=== PATIENT | female | born 1960 | race Caucasian/White ===

== ENCOUNTER 2017-06-23 04:19 | Inpatient (IN) | payer BC ==
[2017-06-23] VITALS (9 sets, daily range): BP systolic 136–166; BP diastolic 70–80; PULSE 69–86; TEMP 36.8–36.9; O2SAT 94–99; Ht 165.1 cm; Wt 95.4 kg
[~2017-06-23] VITALS: Ht 165.1 cm; Wt 95.4 kg
[~2017-06-23 04:19] MED LIST: LSN/10125 PO
[2017-06-23] MEDS ORDERED: SODIUM CHLORIDE 0.9% 1000ML 1,000 ML IV STA (04:38)
[2017-06-23] MEDS ORDERED: OPTIRAY 320 IV PRN (04:45)
[2017-06-23 05:03] LABS: BASO % 0.4 %; BASO ABS # 0.03 K/uL (0-0.2); COMPLETE YES; HEMATOCRIT 43.5 % (37-47); IG% 0.1 %; LYMPH % 20.6 %; MEAN CELL VOLUME 83.7 fL (80-100); MEAN CORPUSCULAR HGB CONC 34.7 g/dl (32-36); MEAN PLATELET VOLUME 9.7 fL (7.4-10.4); MONO % 8.7 %; NEUT % 67.2 %; PLATELET COUNT 239 K/uL (130-400); WHITE BLOOD COUNT 7.28 K/uL (4.8-10.8)
[2017-06-23] MEDS ORDERED: VANCOMYCIN INJ 2,400 MG in SODIUM CHLORIDE 0.9% 500ML 500 ML IV STA (06:07)
[2017-06-23] MEDS ORDERED: CEFTRIAXONE SOD INJ 1 GM ADDVIAL IV STA (06:07)
[2017-06-23] MEDS ORDERED: DEXAMETHASONE SOD INJ 10 MG/ML VIAL IV ONE (06:15)
--- NOTE | 2017-06-23 06:31 | DIAGNOSTIC IMAGING REPORT ---
CHEST 2 VIEWS ROUTINE CLINICAL HISTORY: cough COMPARISON STUDY: No previous studies for comparison. FINDINGS: The cardiac and mediastinal contours are normal. There is no evidence of focal pulmonary consolidation. There is no evidence of failure. No pleural effusions are visualized.[ IMPRESSION: No active disease in the chest. Electronically signed by: Venancio Mora M.D. 06/23/2017 6:29 AM Dictated Date/Time: 06/23/2017 6:29 AM
[2017-06-23] MEDS ORDERED: SODIUM CHLORIDE 0.9% 1000ML 1,000 ML IV SCH (06:35)
[2017-06-23] MEDS ORDERED: MoRPHine SULFATE 2 MG/ML CARP IV PRN (06:45)
[2017-06-23] MEDS ORDERED: ALBUT/IPRATROP 3MG/0.5MG NEB 3 ML VIAL INH PRN (06:45)
[2017-06-23] MEDS ORDERED: ACETAMINOPHEN 325 MG TAB PO PRN (06:45)
[2017-06-23] MEDS ORDERED: ONDANSETRON INJ 2 MG/ML 2 ML VIAL IV PRN (06:45)
[2017-06-23] MEDS ORDERED: HydrALAZINE HCL 20 MG/ML VIAL IV. PRN (07:00)
[2017-06-23 07:06] LABS: BUN/CREATININE RATIO 19.6 (10-20); CALCIUM 8.7 mg/dl (8.5-10.1); CREATININE 0.64 mg/dl (0.60-1.20); POTASSIUM 3.3 mmol/L (3.5-5.1)
[2017-06-23 07:09] LABS: ALB/GLOB RATIO 1.1 (0.9-2)
[2017-06-23] MEDS ORDERED: VANCOMYCIN CONSULT ACTIVE PRN (07:15)
--- NOTE | 2017-06-23 07:16 | EMERGENCY ROOM VISIT NOTE ---
History First contact with patient: 04:30 Chief Complaint: RESPIRATORY PROBLEMS Stated Complaint: CAN'T BREATHE,LUMP IN THROAT Nursing Triage Summary: pt states she feels like she cant breathe after she swallows. pt states she feels she has laryngitist since wednesday, and has become increasingly worse. pt states shes not being treated medically for laryngitist History of Present Illness The patient is a 56 year old female who presents to the Emergency Room with complaints of severe dysphagia with sore throat and laryngitis. Patient states that beginning week she started with laryngitis and last night she had difficulty swallowing solids and liquids. She's had a sore throat all week. Patient complains of occasional cough. Patient denies chest pain, dyspnea, neck stiffness, headache, abdominal pain, vomiting, diarrhea, tongue swelling, facial swelling. No new foods soaps or discharge. No history of similar symptoms in the past. Review of Systems See HPI for pertinent positives & negatives. A total of 10 systems reviewed and were otherwise negative. Past Medical/Surgical History Medical Problems: (1) Difficulty swallowing (2) Lump in throat Hypertension Social History Smoking Status: Never Smoker Smokeless Tobacco Use: No Alcohol Use: none Drug Use: none Marital Status: Housing Status: lives with family Current/Historical Medications Scheduled Hctz/Lisinopril (Lisinopril/Hctz 10/12.5 Mg), 1 TAB PO DAILY Physical Exam Vital Signs Date Time Temp Pulse Resp B/P (MAP) Pulse Ox O2 Delivery O2 Flow Rate FiO2 06/23/17 06:44 72 06/23/17 06:42 36.9 93 18 163/82 99 Room Air 06/23/17 04:32 99 Room Air 06/23/17 04:22 36.9 93 18 155/94 99 Room Air Physical Exam VITALS: Vitals are noted on the nurse's note and reviewed by myself. Vital signs stable. GENERAL: Pleasant female with loss of voice, in no acute distress, nondiaphoretic, well-developed well-nourished. SKIN: The skin was without rashes, erythema, edema, or bruising. There is no tenting of the skin. Capillary reflex less than 2 seconds. HEAD: Normocephalic atraumatic. EARS: External auditory canals clear, tympanic membranes pearly collado without erythema or effusion bilaterally. EYES: Pupils equal round and reactive to light and accommodation. Conjunctivae without injection, sclerae without icterus. Extraocular movements intact. NOSE: Patent, turbinates without inflammation or discharge. No sinus tenderness. MOUTH: Mucous membranes moist. Pharynx with erythema without exudate. Uvula midline. Airway patent. Tongue does not deviate. No drooling. Patient is maintaining her secretions. No tongue edema. NECK: Supple without nuchal rigidity. No lymphadenopathy. No thyromegaly. Cervical spine is nontender. No JVD. No meningeal signs HEART: Regular rate and rhythm LUNGS: Clear to auscultation bilaterally without wheezes, rales or rhonchi. No dullness to percussion. No retractions or accessory muscle use. ABDOMEN: Positive bowel sounds x 4. Normal tympanic percussion. Soft, nontender, without masses or organomegaly. Spence sign negative. No guarding or rebound tenderness. MUSCULOSKELETAL: No muscle atrophy, erythema, or edema noted. NEURO: Patient was alert and oriented to person place and time. Normal sensation to light and sharp touch. No focal neurological deficits. Medical Decision & Procedures Laboratory Results 06/23/17 04:40 Red Blood Count 5.20, Mean Corpuscular Volume 83.7, Mean Corpuscular Hemoglobin 29.0, Mean Corpuscular Hemoglobin Concent 34.7, Mean Platelet Volume 9.7, Neutrophils (%) (Auto) 67.2, Lymphocytes (%) (Auto) 20.6, Monocytes (%) (Auto) 8.7, Eosinophils (%) (Auto) 3.0, Basophils (%) (Auto) 0.4, Neutrophils # (Auto) 4.89, Lymphocytes # (Auto) 1.50, Monocytes # (Auto) 0.63, Eosinophils # (Auto) 0.22, Basophils # (Auto) 0.03 06/23/17 06:37 Test 06/23/17 04:40 06/23/17 06:19 06/23/17 06:37 White Blood Count 7.28 K/uL (4.8-10.8) Red Blood Count 5.20 M/uL (4.2-5.4) Hemoglobin 15.1 g/dL (12.0-16.0) Hematocrit 43.5 % (37-47) Mean Corpuscular Volume 83.7 fL (80-100) Mean Corpuscular Hemoglobin 29.0 pg (25-34) Mean Corpuscular Hemoglobin Concent 34.7 g/dl (32-36) Platelet Count 239 K/uL (130-400) Mean Platelet Volume 9.7 fL (7.4-10.4) Neutrophils (%) (Auto) 67.2 % Lymphocytes (%) (Auto) 20.6 % Monocytes (%) (Auto) 8.7 % Eosinophils (%) (Auto) 3.0 % Basophils (%) (Auto) 0.4 % Neutrophils # (Auto) 4.89 K/uL (1.4-6.5) Lymphocytes # (Auto) 1.50 K/uL (1.2-3.4) Monocytes # (Auto) 0.63 K/uL (0.11-0.59) Eosinophils # (Auto) 0.22 K/uL (0-0.5) Basophils # (Auto) 0.03 K/uL (0-0.2) RDW Standard Deviation 39.0 fL (36.4-46.3) RDW Coefficient of Variation 13.0 % (11.5-14.5) Immature Granulocyte % (Auto) 0.1 % Immature Granulocyte # (Auto) 0.01 K/uL (0.00-0.02) Bedside Glucose 152 mg/dl (70-90) Anion Gap 5.0 mmol/L (3-11) Est Creatinine Clear Calc Drug Dose 108.9 ml/min Estimated GFR () 114.8 Estimated GFR (Non- 99.1 BUN/Creatinine Ratio 19.6 (10-20) Calcium Level 8.7 mg/dl (8.5-10.1) Total Bilirubin 1.1 mg/dl (0.2-1) Aspartate Amino Transf (AST/SGOT) 19 U/L (15-37) Alanine Aminotransferase (ALT/SGPT) 28 U/L (12-78) Alkaline Phosphatase 108 U/L (45-117) Total Protein 7.3 gm/dl (6.4-8.2) Albumin 3.8 gm/dl (3.4-5.0) Globulin 3.5 gm/dl (2.5-4.0) Albumin/Globulin Ratio 1.1 (0.9-2) Medications Administered Medications (Trade) Dose Ordered Sig/Vale Route Start Time Stop Time Status Last Admin Dose Admin Sodium Chloride 1,000 ml @ 999 mls/hr Q1H1M STAT IV 06/23/17 04:38 06/23/17 05:38 DC 06/23/17 04:57 999 MLS/HR Ceftriaxone Sodium (Rocephin Inj) 1 gm NOW STAT IV 06/23/17 06:07 06/23/17 06:12 DC 06/23/17 06:25 1 GM Dexamethasone Sodium Phosphate (Decadron Inj) 10 mg NOW ONCE IV 06/23/17 06:15 06/23/17 06:16 DC 06/23/17 06:25 10 MG ED Course Prior records/ancillary studies reviewed. Triage Nursing notes reviewed. Additional history obtained from family The patient's history was concerning for a sore throat and dysphagia. Differential diagnosis: Etiologies such as epiglottitis, viral syndrome, tonsillitis, streptococcal pharyngitis, mononucleosis, peritonsillar abscess, retropharyngeal abscess, otitis, pneumonia, influenza, as well as others were entertained. ER treatment provided: IV fluids On reassessment the patient felt better. Diagnostics interpreted by me: The labs revealed creatinine 0.7. Negative strep test. Sent for culture. No leukocytosis Imaging studies: Chest x-ray with no acute consolidation, pneumothorax or free air per my interpretation CT NECK: Symmetric, prominent thickening of bilateral aryepiglottic folds/supraglottic region as well as thickening of the vocal cords. Findings are nonspecific and may be infectious or inflammatory in etiology. If is patent but moderately narrowed at supraglottic region. No evidence of focal mass, abscess, or foreign body. Epiglottis is within normal limits. Right level II lymph node is mildly enlarged, measuring up to 1.1 cm in short axis. Otherwise, no significantly enlarged lymph nodes. 4 mm lung nodule right apex. Degenerative changes of cervical spine. Radiologist: Dane Arnold MD Consultation: A consultation was placed with ENT, Dr. Summers who recommends antibiotics and he will come in and evaluate the patient and recommends ICU admission. I spoke to Dr. Morrow, hospitalist, and will evaluate the patient for admission. This appears to be consistent with supraglottitis. Patient was started on antibiotics. Patient was given steroids. Blood cultures are pending.. She will be evaluated by medicine and by ENT.. Patient was neurovascularly and neurologically intact. Stable vital signs. By the evaluation outlined above emergent etiologies such as peritonsillar abscess, retropharyngeal abscess, otitis, pneumonia, meningitis, urinary tract infection, as well as others were deemed relatively unlikely. The pt informed about the findings as listed above. All questions were answered and pleased with the treatment. Case reviewed with my attending. Medical Decision As above Medication Reconcilliation Current Medication List: was personally reviewed by me Blood Pressure Screening Patient's blood pressure: Normal blood pressure Impression Primary Impression: Supraglottitis Departure Information Dispostion Being Evaluated By Hospitalist Condition FAIR Referrals Mike Montejo M.D. (PCP) Patient Instructions My [facility] Problem Qualifiers Primary Impression: Supraglottitis Airway obstruction: without obstruction Qualified Codes: J04.30 - Supraglottitis, unspecified, without obstruction
--- NOTE | 2017-06-23 07:25 | HISTORY & PHYSICAL EXAMINATION ---
DATE OF ADMISSION: 06/23/2017 CHIEF COMPLAINT: Lump in her throat and difficulty swallowing. HISTORY OF PRESENT ILLNESS: This is a 56-year-old female with past medical history significant for hypertension, hyperlipidemia, migraines, adjustment reaction presents with lump in the throat and feeling difficulty swallowing. The patient says since last 3-4 days she had laryngitis, but she did not take any medications but last night she felt like swollen lump and swelling in her throat and has difficult and painful swallowing. She took a Benadryl but the symptoms did not improve and she came to the ER. She denies any shortness of breath but when she had difficulty swallowing, she felt short of breath. Currently resting comfortably, hemodynamically stable. Denies any headaches, no blurred vision. She has had some runny nose for few days, no ear pain, no fever or chills. No chest pain, no nausea, no vomiting, no abdominal pain. Normal bowel and bladder movements. Appetite is okay. No blood in stools. No blood in the urine. No skin rash. ALLERGIES: PENICILLINS. PAST MEDICAL HISTORY: As mentioned above. PAST SURGICAL HISTORY: induced by D&E. MEDICATIONS: The patient is on lisinopril/hydrochlorothiazide 10/12.5 mg p.o. daily. FAMILY HISTORY: Significant for mother had breast cancer and hypertension and high cholesterol. Paternal grandfather has lung cancer. Paternal grandmother has CHF. SOCIAL HISTORY: . No smoking history. No alcohol, no drug use. REVIEW OF SYMPTOMS: As per HPI. Rest of review of symptoms negative. PHYSICAL EXAMINATION: GENERAL: The patient is of moderate build, not in distress. VITAL SIGNS: Temperature 36.9, pulse 93, respiratory rate 18, blood pressure 155/94, oxygen 99% room air. HEENT: No pallor, no icterus. Pupils equal, round, and reactive to light. Oral mucosa moist. On palpation, on visual inspection, no erythema, hypolarynx or enlarged tonsils seen. NECK: No JVD, no carotid bruits. CARDIOVASCULAR: S1, S2 heard, regular rate and rhythm, no murmur, no gallop. RESPIRATORY SYSTEM: Normal AP diameter. No accessory muscle use. No wheezing, no crackles. ABDOMEN: Soft, bowel sounds present. Nontender. No distention. CENTRAL NERVOUS SYSTEM: Cranial nerves II-XII grossly intact. Nonfocal. EXTREMITIES: No edema, no erythema. LABORATORY DATA: WBC 7.2, hemoglobin 15.1, hematocrit 43.5, platelets 239. Chemistry pending. Chest x-ray: No acute disease in the chest. Soft tissue CT of the neck unofficial reading supraglottitis. ASSESSMENT AND PLAN: This is a 56-year-old female who presents with lump in the throat and difficulty swallowing. 1. Feeling of lump in throat and difficulty swallowing and laryngitis for 3 days, possible supraglottitis. Official reading of the CT scan of the soft tissues pending. The patient is taking IV Decadron, placed on IV Rocephin and vancomycin. ER Discussed with ENT, Dr. Summers who is going to come and evaluate the patient. We will admit to ICU and closely monitor. 2. History of hypertension. The patient is taking lisinopril/hydrochlorothiazide and the patient says she is on this medication for the last 5 years which we will hold for now and place her on IV hydralazine p.r.n. 3. Deep vein thrombosis prophylaxis, SCDs and TEDs. DISPOSITION: Admit to ICU. Expect to discharge home and follow with her family doctor. Level 1 full code. MTDD
--- NOTE | 2017-06-23 07:28 | DIAGNOSTIC IMAGING REPORT ---
SOFT TISSUE NECK WITH HISTORY: 56 years-old Female severe dysphagia recent laryngitis with sore throat and difficulty swallowing secretions. COMPARISON: Chest radiograph of same day TECHNIQUE: Multiple axial CT images of the soft tissues of the neck were obtained utilizing 93 mL Optiray 320 IV contrast. A dose lowering technique was used consistent with the principals of ARI. FINDINGS: Nasopharynx, oropharynx and hypopharynx are patent. There is mild symmetric enlargement of the adenoid tonsils. Sulligent tonsils and lingual tonsils are within normal limits. There is moderate symmetric thickening of the bilateral aryepiglottic folds and true vocal cords. The epiglottis, vallecula and Piriform sinuses are unremarkable. No glottic mass. Preglottic fat is maintained. Image trachea is patent. Parapharyngeal fat planes are maintained. No peritonsillar or retropharyngeal abscess. Mildly prominent level 2 lymph nodes are likely reactive. Imaged intracranial structures are unremarkable. Thyroid is homogeneous. Image carotid vasculature is unremarkable. Mastoid air cells, middle ear cavities are clear. Paranasal sinuses are also generally clear. Moderate multilevel degenerative changes of the cervical spine. 2 mm pleural-based pulmonary nodule of the left upper lobe seen on image 377 series 3. There is a slightly irregular 6 x 5 mm pulmonary nodule of the right upper lobe on image 352 series 3. IMPRESSION: 1. Moderate symmetric thickening of the bilateral aryepiglottic folds and true vocal cords without focal mass suggests inflammatory or infectious etiology. This could be correlated with direct visualization. 2. Mild enlargement of the adenoid tonsils. No peritonsillar or retropharyngeal abscess. 3. Mild prominence of level II lymph nodes bilaterally, likely reactive. 4. 6 x 5 mm pulmonary nodule of the right upper lobe. Follow-up nonemergent chest CT recommended to further evaluate. The above report was generated using voice recognition software. It may contain grammatical, syntax or spelling errors. Electronically signed by: Bryant Benz M.D. 06/23/2017 7:26 AM Dictated Date/Time: 06/23/2017 7:19 AM
--- NOTE | 2017-06-23 07:39 | ENT CONSULTATION ---
DATE OF ADMISSION: 06/23/2017 DIAGNOSIS: Supraglottitis. HISTORY OF PRESENT ILLNESS: A 56-year-old lady presented with 1 week history of laryngitis; however, since yesterday and last evening, she developed extreme sore throat and dysphagia being unable to swallow and presented to the Emergency Room. Carrington Schuler did a CT scan showing arytenoid swelling and requested a consultation. There was no epiglottic swelling on the CT scan. PAST MEDICAL HISTORY: MEDICAL PROBLEMS: None. SOCIAL HISTORY: Denies tobacco, alcohol. ALLERGIES: PENICILLIN. REVIEW OF SYSTEMS: Positive for hoarseness and dysphagia. PHYSICAL EXAMINATION: GENERAL: WNWD female, mildly obese, in no acute distress; however, her voice is coarse and she seems to have a slightly muffled voice. HEAD: Normocephalic. EYES: Normal. EARS: Tympanic membranes intact. NOSE: Nasal passages swollen turbinates. THROAT: Oropharynx is normal. Fiberoptic laryngoscopy was performed. This showed a normal epiglottis. However, she does have swollen arytenoid consistent with a supraglottitis consistent with the findings on CT scan. NECK: Supple. HEART: RRR. LUNGS: Clear. ABDOMEN: Soft. GENITOURINARY: Deferred. IMPRESSION: Supraglottitis, early. PLAN: IV Rocephin and vancomycin and Decadron in case it is viral. Sputum culture and blood cultures were taken. I will follow this patient in the ICU. She will be monitored in the ICU with expectation of recovery; however, if she worsens, she will need to have either intubation or a tracheostomy. PREOPERATIVE DIAGNOSIS: Supraglottiitis. POSTOPERATIVE DIAGNOSIS: Same. PROCEDURE: Fiberoptic laryngoscopy. ANESTHESIA: Cetacaine. COMPLICATIONS: None. BLOOD LOSS: None. HISTORY OF PRESENT ILLNESS: A 56-year-old lady with hoarseness and dysphagia. DESCRIPTION OF PROCEDURE: The fiberoptic flexible endoscope was used via the right naris are going through the middle meatus into the nasopharynx and then visualizing the hypopharynx. Epiglottis was normal. The arytenoids were swollen. The vocal cords were mobile with good glottic opening. IMPRESSION AND PLAN: Acute supraglottitis. The laryngoscope was withdrawn and the patient will be admitted to the ICU for IV antibiotics. ASHA
[2017-06-23] MEDS ORDERED: BENZOCAINE/TETRACAIN/BUTAM CAN 200 APPLN/20 GM CAN EXT ONE (08:41)
[2017-06-23] MEDS ORDERED: ENOXAPARIN 30 MG/0.3 ML SYR SQ ONE (09:15)
--- NOTE | 2017-06-23 09:21 | Pharmacy Progress Note ---
Pharmacy Abx Initial Consult Date of Service Jun 23, 2017. Pharmacy Dosing Scope Date of Consult: 06/23/17 Consultation requested by: Dr. Alejo Pharmacy is consulted to initiate IV VANCOMYCIN therapy, order appropriate labs and adjust drug dose/frequency. Subjective The patient is a 56 year old female admitted on Jun 23, 2017 at 06:42 for laryngitis, supraglottitis, and difficulty swallowing Objective Height (Feet): 5 Height (Inches): 5.00 Weight (Kilograms): 95.700 Vital Signs (Past 12Hrs) Vital Signs Past 12 Hours Date Time Temp Pulse Resp B/P (MAP) Pulse Ox O2 Delivery O2 Flow Rate FiO2 06/23/17 08:00 36.9 79 18 166/70 98 Room Air 06/23/17 07:20 99 Room Air 06/23/17 06:44 72 06/23/17 06:42 36.9 93 18 163/82 99 Room Air 06/23/17 04:32 99 Room Air 06/23/17 04:22 36.9 93 18 155/94 99 Room Air Lab Results (24Hrs) Laboratory Tests (24 Hours) Test 06/23/17 04:40 White Blood Count 7.28 K/uL (4.8-10.8) Red Blood Count 5.20 M/uL (4.2-5.4) Hemoglobin 15.1 g/dL (12.0-16.0) Hematocrit 43.5 % (37-47) Mean Corpuscular Volume 83.7 fL (80-100) Mean Corpuscular Hemoglobin 29.0 pg (25-34) Mean Corpuscular Hemoglobin Concent 34.7 g/dl (32-36) Platelet Count 239 K/uL (130-400) Mean Platelet Volume 9.7 fL (7.4-10.4) Neutrophils (%) (Auto) 67.2 % Lymphocytes (%) (Auto) 20.6 % Monocytes (%) (Auto) 8.7 % Eosinophils (%) (Auto) 3.0 % Basophils (%) (Auto) 0.4 % Neutrophils # (Auto) 4.89 K/uL (1.4-6.5) Lymphocytes # (Auto) 1.50 K/uL (1.2-3.4) Monocytes # (Auto) 0.63 K/uL (0.11-0.59) H Eosinophils # (Auto) 0.22 K/uL (0-0.5) Basophils # (Auto) 0.03 K/uL (0-0.2) Micro Results Date/Time Source Procedure Growth Status 06/23/17 06:37 Blood Blood Culture Pending Received 06/23/17 06:37 Blood Blood Culture Pending Received 06/23/17 07:45 Nasal MRSA DNA Surveillance Screen Pending Received 06/23/17 04:40 Throat Group A Streptococcus Screen - Final SPECIMEN NEGATIVE FOR GROUP A BETA ST... Resulted 06/23/17 04:40 Throat Group A Streptococcus Screen (RAMIRO) Pending Resulted Assessment & Plan Assessment * 56 year old female admitted w/ difficulty swallowing secondary to laryngitis / supraglottitis * Empiric Ceftriaxone + Vancomycin IV initiated by hospitalist, Vancomycin dosing per pharmacy consult * Rapid GAS negative, backup throat cx, BLCX's and MRSA nasal screen pending * Currently afebrile, no leukocytosis noted, sat well on room air Plan Vancomycin IV * Loading dose: 2400 mg (25 mg/kg) * Maintenance dose: 1500 mg IV (12.7 mg/kg) every 12 hours * Goal trough level for supraglottitis : 15 to 20 mcg/mL pending cx results * Trough level ordered for 06/25/17 w/ 4th maintenance dose * p'kinetic estimates: eCrCl 100-110cc/min; Vd 0.6L/kg (BMI > 35), half-life ~7- 8 hours Pharmacy will continue to follow and will adjust dose/frequency as necessary. Thank you.
--- NOTE | 2017-06-23 09:51 | Critical Care Consultation ---
Critical Care Consultation Date of Consultation: Jun 23, 2017. Attending Physician: Lou Niño M.D. Reason for Consultation: Threatened Airway History of Present Illness 56F with a PMHx of HTN, HLD and miraines p/w a 2 day history of difficulty swallowing. She states that there have been numerous family members sick with a sore throat including her . Her current illness started with a sore throat and then worsened. Pt was admitte to the ICU for airway management. When the patient was examined in the ICU she stated that she felt much better already. was also present in the room and he had a cough. ROS: No chest pain, no SOB, no dyspnea on exertion, no palpitations, no fevers, no chills, no nausea, no vomiting, no diarrhea, no dysuria, no rash. PMHx: HTN PSHx: Per H&P h/o . Allergies: Penicillins Meds: HCTZ/ Lisinopril combo pills. SHx: lives w . Social History Smoking Status: Never Smoker Smokeless Tobacco Use: No Drug Use: none Marital Status: Housing Status: lives with family Allergies Coded Allergies: Penicillins (Verified Allergy, Unknown, ., 06/23/17) Home Medications Scheduled Hctz/Lisinopril (Lisinopril/Hctz 10/12.5 Mg), 1 TAB PO DAILY Current Inpatient Medications Current Inpatient Medications Medications (Trade) Dose Ordered Sig/Vale Route Start Time Stop Time Status Last Admin Dose Admin Ioversol (Optiray 320) 100 ml UD PRN IV 06/23/17 04:45 06/27/17 04:44 Sodium Chloride 1,000 ml @ 80 mls/hr [id number] IV 06/23/17 06:35 07/23/17 06:34 06/23/17 07:47 80 MLS/HR Acetaminophen (Tylenol Tab) 650 mg Q4H PRN PO 06/23/17 06:45 07/23/17 06:44 Ondansetron HCl (Zofran Inj) 4 mg Q6H PRN IV 06/23/17 06:45 07/23/17 06:44 Morphine Sulfate (MoRPHine SULFATE INJ) 2 mg Q2H PRN IV 06/23/17 06:45 07/07/17 06:44 Albuterol/ Ipratropium (Duoneb) 3 ml Q4 PRN INH 06/23/17 06:45 07/23/17 06:44 Vancomycin HCl 1000 mg/Sodium Chloride 270 ml @ 125 mls/hr Q12 IV 06/23/17 09:00 07/03/17 08:59 UNV Ceftriaxone Sodium 1 gm/ Dextrose 50 ml @ 100 mls/hr Q24H IV 06/24/17 06:00 07/04/17 05:59 Hydralazine HCl (HydrALAZINE INJ) 5 mg Q6 PRN IV. 06/23/17 07:00 07/23/17 06:59 Vancomycin HCl (Consult) 1 ea UD PRN N/A 06/23/17 07:15 07/23/17 07:14 Dexamethasone Sodium Phosphate 6 mg/Syringe 1.5 ml @ 1 mls/min Q8H IV 06/23/17 14:00 07/23/17 13:59 Review of Systems Constitutional: No fever, No chills Eyes: No redness ENT: + sore throat, + trouble swallowing (on admission, much improved now) Respiratory: No cough, No sputum, No wheezing, No shortness of breath, No dyspnea on exertion, No hemoptysis Cardiovascular: No edema Abdomen: No pain, No nausea, No vomiting, No diarrhea Musculoskeletal: No joint pain Genitourinary - Female: No dysuria Neurologic: No memory loss Psychiatric: No depression symptoms Integumentary: No rash Physical Exam Date Time Temp Pulse Resp B/P (MAP) Pulse Ox O2 Delivery O2 Flow Rate FiO2 06/23/17 07:20 99 Room Air 06/23/17 06:44 72 06/23/17 06:42 36.9 93 18 163/82 99 Room Air 06/23/17 04:32 99 Room Air 06/23/17 04:22 36.9 93 18 155/94 99 Room Air General Appearance: well-appearing, WD/WN, obese Head: normocephalic Eyes: PERRLA, no discharge, EOMI, sclerae normal, conjunctivae normal ENT: normal nasal exam, normal throat exam, tonsillar swelling, other (no si) Neck: normal range of motion, no tenderness, trachea midline, no stridor, supple, no nuchal rigidity, other (non tender anterior cervical lyphadenopathy) Respiratory: breath sounds normal, clear to auscultation, clear to percussion, no respiratory distress, no tenderness, accessory muscle use Cardiovasular: regular rate/rhythm, normal S1S2, no M/G/R Abdomen: non tender, normal bowel sounds, no rebound, no masses, no guarding, no organomegaly Back: normal inspection Upper Extremities: no edema Lower Extremities: no edema Neuro: alert, oriented x 3, normal motor exam, normal sensation, normal speech Psychiatric: normal affect, no suicidal ideation Laboratory Results Last 24 Hours Test 06/23/17 04:40 06/23/17 06:19 06/23/17 06:37 White Blood Count 7.28 K/uL Red Blood Count 5.20 M/uL Hemoglobin 15.1 g/dL Hematocrit 43.5 % Mean Corpuscular Volume 83.7 fL Mean Corpuscular Hemoglobin 29.0 pg Mean Corpuscular Hemoglobin Concent 34.7 g/dl Platelet Count 239 K/uL Mean Platelet Volume 9.7 fL Neutrophils (%) (Auto) 67.2 % Lymphocytes (%) (Auto) 20.6 % Monocytes (%) (Auto) 8.7 % Eosinophils (%) (Auto) 3.0 % Basophils (%) (Auto) 0.4 % Neutrophils # (Auto) 4.89 K/uL Lymphocytes # (Auto) 1.50 K/uL Monocytes # (Auto) 0.63 K/uL Eosinophils # (Auto) 0.22 K/uL Basophils # (Auto) 0.03 K/uL RDW Standard Deviation 39.0 fL RDW Coefficient of Variation 13.0 % Immature Granulocyte % (Auto) 0.1 % Immature Granulocyte # (Auto) 0.01 K/uL Bedside Glucose 152 mg/dl Sodium Level 139 mmol/L Potassium Level 3.3 mmol/L Chloride Level 104 mmol/L Carbon Dioxide Level 31 mmol/L Anion Gap 5.0 mmol/L Blood Urea Nitrogen 13 mg/dl Creatinine 0.64 mg/dl Est Creatinine Clear Calc Drug Dose 108.9 ml/min Estimated GFR () 114.8 Estimated GFR (Non- 99.1 BUN/Creatinine Ratio 19.6 Random Glucose 145 mg/dl Calcium Level 8.7 mg/dl Total Bilirubin 1.1 mg/dl Aspartate Amino Transf (AST/SGOT) 19 U/L Alanine Aminotransferase (ALT/SGPT) 28 U/L Alkaline Phosphatase 108 U/L Total Protein 7.3 gm/dl Albumin 3.8 gm/dl Globulin 3.5 gm/dl Albumin/Globulin Ratio 1.1 Diagnostic Results SOFT TISSUE NECK WITH HISTORY: 56 years-old Female severe dysphagia recent laryngitis with sore throat and difficulty swallowing secretions. COMPARISON: Chest radiograph of same day TECHNIQUE: Multiple axial CT images of the soft tissues of the neck were obtained utilizing 93 mL Optiray 320 IV contrast. A dose lowering technique was used consistent with the principals of ALARA. FINDINGS: Nasopharynx, oropharynx and hypopharynx are patent. There is mild symmetric enlargement of the adenoid tonsils. Rattan tonsils and lingual tonsils are within normal limits. There is moderate symmetric thickening of the bilateral aryepiglottic folds and true vocal cords. The epiglottis, vallecula and Piriform sinuses are unremarkable. No glottic mass. Preglottic fat is maintained. Image trachea is patent. Parapharyngeal fat planes are maintained. No peritonsillar or retropharyngeal abscess. Mildly prominent level 2 lymph nodes are likely reactive. Imaged intracranial structures are unremarkable. Thyroid is homogeneous. Image carotid vasculature is unremarkable. Mastoid air cells, middle ear cavities are clear. Paranasal sinuses are also generally clear. Moderate multilevel degenerative changes of the cervical spine. 2 mm pleural-based pulmonary nodule of the left upper lobe seen on image 377 series 3. There is a slightly irregular 6 x 5 mm pulmonary nodule of the right upper lobe on image 352 series 3. IMPRESSION: 1. Moderate symmetric thickening of the bilateral aryepiglottic folds and true vocal cords without focal mass suggests inflammatory or infectious etiology. This could be correlated with direct visualization. 2. Mild enlargement of the adenoid tonsils. No peritonsillar or retropharyngeal abscess. 3. Mild prominence of level II lymph nodes bilaterally, likely reactive. 4. 6 x 5 mm pulmonary nodule of the right upper lobe. Follow-up nonemergent chest CT recommended to further evaluate. Assessment & Plan Reason Critically Ill: Airway Management. 56F p/w difficulty swallowing. Admitted to ICU for airway management. Neuro: AAOx3 * Pain control with Tylenol 650mg PO Q4H PRN + Morphine 2mg IV Q2H PRN for pain. ENT: * Supraglottitis: Continue Decadron 6mg TID, at least for 24 hours, started this AM. * CT showed enlarged adenoids, no localized abscess and inflammatory changes in the larynx. * Continue Vanc + Ceftriaxone, Day #1. * Dr. Summers on board, scoped pt, saw enlarged adenoids, appreciate his recommendations moving forward. ID - * Afebrile, WBC count 7.3 * Rapid strep negative. * Blood cultures pending. * MRSA swab pending. * Abx as above. GI/Diet - * Will progress to full liquid diet and advance as tolerated. * Continue IVF 80mls/hr of NSS. * Bilirubin 1.1 - no prior bilis on record - this may be Gilbert's, AST and ALT WNLs. CV - * HTN: Will restart home HCTZ / Lisinopril. Resp - * X-ray results showed no acute process. * Incidental Pulmonary Nodule noted on CT, 6mm x 5mm, recommend outpatient follow up. * Duonebs Q4h PRN. Renal/ - * Creatinine is 0.64. * IVF as above. Endo - * On steroids and sugar is elevated. * Will get HBA1C in the AM. * Electrolytes: Na+ 139, K+ 3.3 * Will start KCL 20meq tabs daily - will start tomorrow because of difficulty swallowing. Heme - * Hgb 15.1, Platelets 239. * DVT Proph: Lovenox 30units SQ daily. MSK - Ambulate as tolerated. Social - No concerns. Full Code Resident Physician Supervision Note: I was present with Dr. Foster during the history and exam. I discussed the case with the resident and agree with the findings and plan as documented in the note. Any exceptions or clarifications are listed here: [None] In summary, the patient is a 56-year-old female with hypertension, hyperlipidemia, migraines who came to [facility] emergency room for evaluation of 2 days of difficulty swallowing. CT scan revealed moderate symmetric thickening of bilateral aryepiglottic folds and 2 vocal cords , mild enlargement of the adenoid tonsils, no peritonsillar or retropharyngeal abscess. Nasal endoscopic examination was done by ENT colleagues revealing enlarged adenoids. Patient was diagnosed with with supraglottitis, treated with Decadron, ceftriaxone and vancomycin. She was transferred critically ill to the current vascular intensive care unit for further management and airway observation as patient is high risk for further deterioration. On my physical examination, patient does not appear to be in discomfort. Neck auscultation did not reveal any stridor. She was complaining cough for painful swallowing. She stated it is improved significantly since emergency room. Lungs were clear to auscultation, heart was beating regularly, abdomen was soft, acceptable hemodynamics and peripheral perfusion. We will continue with Decadron, Rocephin , vancomycin. We'll continue monitoring patient the in the ICU setting overnight for airway protection. Otherwise, we'll continue with hydrochlorothiazide and lisinopril for hypertension on. Incidental pulmonary node was seen on the CT scan. Patient was instructed to follow up on outpatient basis. Renal function is adequate. Hyperglycemia due to steroids, we will initiate the insulin sliding scale. If blood sugars continue to increase may need to resort to insulin drip. Lovenox for DVT prophylaxis. I spent totally 31 minutes of critical care time evaluating and managing this patient. Resident Involvement: Resident Care Provided Care Provided: Adult Hospital Medicine
[2017-06-23 11:06] LABS: ISTAT CARBON DIOXIDE 31 mEq/l (24-31); ISTAT CHLORIDE 97 mEq/L (101-112); ISTAT CREATININE 0.7 mg/dl (0.6-1.3); ISTAT HEMATOCRIT 45 % (37-47); ISTAT HEMOGLOBIN 15.3 g/dl (12.0-16.0); ISTAT SODIUM 140 mEq/L (135-144)
[2017-06-23] MEDS ORDERED: GLUCAGON FOR INJ 1 MG VIAL SQ PRN (13:30)
[2017-06-23] MEDS ORDERED: GLUCOSE 40% GEL 15 GM TUBE PO PRN (13:30)
[2017-06-23] MEDS ORDERED: LANTUS PER UNIT CHARGE SQ STA (13:30)
[2017-06-23] MEDS ORDERED: DEXTROSE 50% 50 ML SYR IV PRN (13:30)
[2017-06-23] MEDS ORDERED: GLUCOSE 10 TABS/TUBE PO PRN (13:30)
[2017-06-23] MEDS ORDERED: NURSING VERBAL MED ORDER ONE (13:45)
[2017-06-23] MEDS: DEXAMETHASONE INJ 6 MG in SYRINGE 0 ML IV SCH ×2 (13:53→21:50)
[2017-06-23] MEDS: INSULIN ASPART 100 UNITS/ML 3 ML PEN SC SCH ×3 (13:55→21:06)
[2017-06-23] MEDS ORDERED: POTASSIUM CHLORIDE 20 MEQ/15 ML UDC PO STA (14:48)
--- NOTE | 2017-06-23 15:47 | Progress Note ---
Internal Med Progress Note Date of Service: Jun 24, 2017. Provider Documentation: SUBJECTIVE: The patient was seen and examined 0n 06/23 and 06/24 Admitted with Supraglottitis/Epiglottitis with difficulty in swallowing and Breathing Did not require Intubation Feels a lot better now Minimal throat symptoms NO Problem with swallowing and or breathing Tolerating Clears OBJECTIVE: Vital Signs-as noted below Exam: General-No distress at rest No swelling of the neck Eyes-normal ENT-normal Neck-Supple Minimal swelling of the bilateral tonsillar nodes Lungs-Clear to auscultate bilaterally Heart-Regular Abdomen-Benign,no masses,bowel sound present Extremities-NO edema Neuro-AAOx3 Lab data as noted below. ASSESSMENT & PLAN: This is a 56-year-old female who presents with lump in the throat and difficulty swallowing. Supraglottitis/Epiglottitis Has been suffering from laryngitis for 3 days, possible supraglottitis. CT scan of the soft tissues -swelling of Aryepiglottic folds,tonsillar and lymph node swelling The patient was started with IV Decadron, placed on IV Rocephin and vancomycin. Admitted to ICU and closely monitored Clinically a lot better Likely to advance diet and may be discharged pending ENT evaluation History of hypertension. The patient is taking lisinopril/hydrochlorothiazide and the patient says she is on this medication for the last 5 years Hold Lisinopril-restarted IV Hydralazine p.r.n. Hyperglycemia Secondary to use of Decadron Received Lantus likely to improve on discontinuation of Decadron Deep vein thrombosis prophylaxis, SCDs and TEDs. Started on Lovenox DISPOSITION May be discharged today -pending ENT evaluation Vital Signs: Date Time Temp Pulse Resp B/P (MAP) Pulse Ox O2 Delivery O2 Flow Rate FiO2 06/24/17 08:00 84 06/24/17 07:45 36.7 76 18 147/78 (101) 96 Room Air 06/24/17 07:45 96 Room Air 06/24/17 07:00 70 96 06/24/17 06:00 37.0 67 18 143/79 (100) 97 06/24/17 04:00 63 18 135/74 (94) 94 06/24/17 04:00 93 Room Air 06/24/17 02:00 58 18 140/79 (99) 93 06/24/17 00:01 36.8 61 16 131/71 (91) 97 06/23/17 23:59 97 Room Air 06/23/17 22:00 69 16 159/79 (105) 97 06/23/17 20:00 36.8 77 16 144/77 (99) 96 06/23/17 20:00 96 Room Air 06/23/17 16:00 95 Room Air 06/23/17 16:00 36.9 74 18 136/71 (92) 94 Room Air 06/23/17 14:00 78 18 154/80 (104) 96 Room Air 06/23/17 12:00 97 Room Air 06/23/17 12:00 36.9 86 18 158/78 (104) 95 Room Air 06/23/17 10:00 36.9 79 18 159/77 (104) 97 Room Air Lab Results: Results Past 24 Hours Test 06/23/17 11:46 06/24/17 05:28 Range/Units Bedside Glucose 199 70-90 mg/dl White Blood Count 10.30 4.8-10.8 K/uL Red Blood Count 4.68 4.2-5.4 M/uL Hemoglobin 13.1 12.0-16.0 g/dL Hematocrit 39.5 37-47 % Mean Corpuscular Volume 84.4 80-100 fL Mean Corpuscular Hemoglobin 28.0 25-34 pg Mean Corpuscular Hemoglobin Concent 33.2 32-36 g/dl Platelet Count 263 130-400 K/uL Mean Platelet Volume 9.6 7.4-10.4 fL Neutrophils (%) (Auto) 87.4 % Lymphocytes (%) (Auto) 9.1 % Monocytes (%) (Auto) 3.2 % Eosinophils (%) (Auto) 0.0 % Basophils (%) (Auto) 0.0 % Neutrophils # (Auto) 9.00 1.4-6.5 K/uL Lymphocytes # (Auto) 0.94 1.2-3.4 K/uL Monocytes # (Auto) 0.33 0.11-0.59 K/uL Eosinophils # (Auto) 0.00 0-0.5 K/uL Basophils # (Auto) 0.00 0-0.2 K/uL RDW Standard Deviation 39.6 36.4-46.3 fL RDW Coefficient of Variation 13.0 11.5-14.5 % Immature Granulocyte % (Auto) 0.3 % Immature Granulocyte # (Auto) 0.03 0.00-0.02 K/uL Sodium Level 141 136-145 mmol/L Potassium Level 3.7 3.5-5.1 mmol/L Chloride Level 108 98-107 mmol/L Carbon Dioxide Level 24 21-32 mmol/L Anion Gap 9.0 3-11 mmol/L Blood Urea Nitrogen 13 7-18 mg/dl Creatinine 0.59 0.60-1.20 mg/dl Est Creatinine Clear Calc Drug Dose 120.2 ml/min Estimated GFR () 117.9 Estimated GFR (Non- 101.7 BUN/Creatinine Ratio 22.9 10-20 Random Glucose 161 70-99 mg/dl Estimated Average Glucose 143 mg/dl Hemoglobin A1c 6.6 4.5-5.6 % Calcium Level 8.7 8.5-10.1 mg/dl
[2017-06-23] MEDS: VANCOMYCIN INJ 1,500 MG in SODIUM CHLORIDE 0.9% 500ML 500 ML IV SCH (19:38)
[2017-06-24] VITALS (13 sets, daily range): BP systolic 131–153; BP diastolic 64–84; PULSE 58–85; TEMP 36.2–37; O2SAT 93–97
[2017-06-24] MEDS: DEXAMETHASONE INJ 6 MG in SYRINGE 0 ML IV SCH ×2 (05:28→14:10)
[2017-06-24 05:43] LABS: COMPLETE YES; HEMATOCRIT 39.5 % (37-47); IG% 0.3 %; LYMPH % 9.1 %; LYMPH ABS # 0.94 K/uL (1.2-3.4); MEAN CELL VOLUME 84.4 fL (80-100); MEAN CORPUSCULAR HGB CONC 33.2 g/dl (32-36); MEAN PLATELET VOLUME 9.6 fL (7.4-10.4); MONO % 3.2 %; NEUT % 87.4 %; PLATELET COUNT 263 K/uL (130-400); RED BLOOD COUNT 4.68 M/uL (4.2-5.4)
[2017-06-24] MEDS ORDERED: CEFTRIAXONE SOD INJ 1 GM in DEXTROSE 5% ADD-VANTAGE 50ML 50 ML IV SCH (06:00)
[2017-06-24 06:04] LABS: ESTIMATED AVERAGE GLUCOSE 143 mg/dl; HA1C FLAG Normal (Normal)
[2017-06-24 06:16] LABS: BUN/CREATININE RATIO 22.9 (10-20); CALCIUM 8.7 mg/dl (8.5-10.1); CREATININE 0.59 mg/dl (0.60-1.20); POTASSIUM 3.7 mmol/L (3.5-5.1)
[2017-06-24] MEDS ORDERED: NURSING VERBAL MED ORDER ONE ×2 (06:30)
[2017-06-24] MEDS ORDERED: LORAZEPAM 2 MG/ML 1 ML VIAL IV ONE (06:45)
[2017-06-24] MEDS: VANCOMYCIN INJ 1,500 MG in SODIUM CHLORIDE 0.9% 500ML 500 ML IV SCH (07:44)
[2017-06-24] MEDS: INSULIN ASPART 100 UNITS/ML 3 ML PEN SC SCH ×2 (08:05→12:47)
--- NOTE | 2017-06-24 08:15 | Critical Care Progress Note ---
Critical Care Progress Note Date of Service Jun 24, 2017. ICU Day ICU Day Number: [address] Mcwilliams Subjective The patient was seen and examined at bedside. No acute overnight events. Patient is resting comfortably in bed. Denies having any pain. Eating a full liquid diet well. Feel great. Plan of care was described to the patient and all questions were answered. ROS: No chest pain, no SOB, no dyspnea on exertion, no palpitations, no fevers, no chills, no nausea, no vomiting, no diarrhea, no dysuria, no rash. +voice hoarseness has improved. Objective Gen: No acute distress. Patient appears better than previous day. HEENT: Head - normocephalic and atraumatic. Pupils are equal, round, and reactive to light. Extraocular eye muscles are intact and sclera are anicteric. Ears - bilaterally patent canals with noninjected tympanic membranes and no evidence of hemotympanum. Nose - moist nasal mucosa without discharge. Mouth - moist buccal mucosa. Oropharynx is nonerythematous and there is no tonsillar exudate or edema noted. Hoarseness from previous day has improved. Neck: Supple; no JVD, nuchal rigidity, or auscultated bruits. Continued Non tender anterior cervical lymphadenopathy from previous day. Heart: Regular rate and rhythm. There is a normal S1 and S2 with no murmurs, clicks, or gallops appreciated. Lungs: Clear to auscultation bilaterally with no wheezes, rales, or rhonchi. Abdomen: Soft, completely nontender, nondistended, with good bowel sounds. There are no palpable pulsatile masses or hepatosplenomegaly. There is no guarding, rigidity, or rebound noted. Extremities: No evidence of cyanosis, clubbing, or edema. There are easily palpable peripheral pulses. Neuro:The patient is awake and alert, oriented to day, time, and place. Muscle strength is 5/5 in all 4 extremities. 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 There are no cerebellar signs. Current SOFA Score SOFA Score Response (Comments) Value Platelets (x10) > 150 0 Bilirubin (mg/dL) < 1.2 0 [place] Coma Score 15 0 Level of Hypotension No Hypotension 0 Creatinine (mg/dL) < 1.2 0 Total 0 Assessment & Plan Reason Critically Ill: Airway Management. 56F p/w difficulty swallowing. Admitted to ICU for airway management. Neuro: AAOx3 * Pain control with Tylenol 650mg PO Q4H PRN + Morphine 2mg IV Q2H PRN for pain. ENT: * Supraglottitis: Continue Decadron 6mg TID, at least for 24 hours, started this AM. * CT showed enlarged adenoids, no localized abscess and inflammatory changes in the larynx. * Continue Vanc + Ceftriaxone, Day #2. * Dr. Summers on board, scoped pt, saw enlarged adenoids, appreciate his recommendations moving forward. ID - * Afebrile, WBC count 7.3-->10.3 * Rapid strep negative. * Blood cultures pending. * MRSA swab negative. * Abx as above. GI/Diet - * Will progress to full liquid diet and advance as tolerated. * DC'ed IVF. * Bilirubin 1.1 - no prior bilis on record - this may be Gilbert's, AST and ALT WNLs. CV - * HTN: c/w home HCTZ / Lisinopril. Resp - * X-ray results showed no acute process. * Incidental Pulmonary Nodule noted on CT, 6mm x 5mm, recommend outpatient follow up. * Duonebs Q4h PRN. Renal/ - * Creatinine is 0.64-->0.59 * IVF as above. Endo - * On steroids and sugar is elevated. * HBA1C is 6.6 * Will start Lantus 8units BID with meal coverage. * Electrolytes: Na+ 141, K+ 3.7 * c/w PO KCL 20meq tabs daily Heme - * Hgb 13.1, Platelets WNL. * DVT Proph: Lovenox 40units SQ daily. MSK - Ambulate as tolerated. Social - No concerns. Dispo: OK to downgrade today. Full Code Resident Physician Supervision Note: I was present with Dr. Foster during the history and exam. I discussed the case with the resident and agree with the findings and plan as documented in the note. In summary, the patient is a 56-year-old female with hypertension, hyperlipidemia, migraines who came to [facility] emergency room yesterday for evaluation of 2 days of difficulty swallowing. CT scan revealed moderate symmetric thickening of bilateral aryepiglottic folds and true vocal cords, mild enlargement of the adenoid tonsils, no peritonsillar or retropharyngeal abscess. Nasal endoscopic examination was done by ENT colleagues revealing enlarged adenoids. Patient was diagnosed with with supraglottitis, treated with Decadron, ceftriaxone and vancomycin. She was transferred critically ill to the current vascular intensive care unit for further management and airway observation as patient is high risk for further deterioration. Over the night, patient continues to improve. On physical examination she still has nontender anterior lymphadenopathy but no stridor. Swallowing has improved significantly, she is able to tolerate clear diet. We will advance it further. Cultures are not revealing. We'll continue with vancomycin and ceftriaxone, Decadron. Patient developed steroid-related hyperglycemia, we will start her on the Lantus 8 units subcutaneous twice a day while she is on Decadron. We will increase Lovenox dose to 40 mg subcutaneous daily for DVT prophylaxis. Patient has improved significantly, so we'll transfer out from intensive care unit to the regular nursing floor for further management. [id number] note. Consults & Procedures Consultants: Counsel (Dr. Mcwilliams) ENG (Dr. Summers) Procedures: None. Data Medications: Current Inpatient Medications Medications (Trade) Dose Ordered Sig/Vale Route Start Time Stop Time Status Last Admin Dose Admin Ioversol (Optiray 320) 100 ml UD PRN IV 06/23/17 04:45 06/27/17 04:44 Acetaminophen (Tylenol Tab) 650 mg Q4H PRN PO 06/23/17 06:45 07/23/17 06:44 Ondansetron HCl (Zofran Inj) 4 mg Q6H PRN IV 06/23/17 06:45 07/23/17 06:44 Morphine Sulfate (MoRPHine SULFATE INJ) 2 mg Q2H PRN IV 06/23/17 06:45 07/07/17 06:44 Albuterol/ Ipratropium (Duoneb) 3 ml Q4 PRN INH 06/23/17 06:45 07/23/17 06:44 Vancomycin HCl 1500 mg/Sodium Chloride 530 ml @ 200 mls/hr Q12H IV 06/23/17 20:00 07/03/17 19:59 06/23/17 19:38 200 MLS/HR Ceftriaxone Sodium 1 gm/ Dextrose 50 ml @ 100 mls/hr Q24H IV 06/24/17 06:00 07/04/17 05:59 06/24/17 05:28 100 MLS/HR Hydralazine HCl (HydrALAZINE INJ) 5 mg Q6 PRN IV. 06/23/17 07:00 07/23/17 06:59 Vancomycin HCl (Consult) 1 ea UD PRN N/A 06/23/17 07:15 07/23/17 07:14 Dexamethasone Sodium Phosphate 6 mg/Syringe 1.5 ml @ 1 mls/min Q8H IV 06/23/17 14:00 07/23/17 13:59 06/24/17 05:28 1 MLS/MIN Enoxaparin Sodium (Lovenox Inj) 30 mg QAM SQ 06/24/17 09:00 07/24/17 08:59 HCTZ/Lisinopril (Prinzide 10-12.5MG Tab) 1 tab DAILY PO 06/24/17 09:00 07/24/17 08:59 Potassium Chloride (Klor-Con Tab) 20 meq QAM PO 06/24/17 09:00 07/24/17 08:59 Insulin Aspart (novoLOG ASPART) SLIDING SCALE ACHS SC 06/23/17 13:29 07/23/17 13:28 06/23/17 21:06 1 UNITS Glucose (Glucose 40% Gel) 15-30 GRAMS 15 GRAMS... UD PRN PO 06/23/17 13:30 07/23/17 13:29 Glucose (Glucose Chew Tab) 4-8 Tablets 4 Tabl... UD PRN PO 06/23/17 13:30 07/23/17 13:29 Dextrose (Dextrose 50% 50ML Syringe) 25-50ML OF 50% DW IV FOR... UD PRN IV 06/23/17 13:30 07/23/17 13:29 Glucagon (Glucagon Inj) 1 mg UD PRN SQ 06/23/17 13:30 07/23/17 13:29 Vital Signs: Date Time Temp Pulse Resp B/P (MAP) Pulse Ox O2 Delivery O2 Flow Rate FiO2 06/24/17 06:00 37.0 67 18 143/79 (100) 97 06/24/17 04:00 63 18 135/74 (94) 94 06/24/17 04:00 93 Room Air 06/24/17 02:00 58 18 140/79 (99) 93 06/24/17 00:01 36.8 61 16 131/71 (91) 97 06/23/17 23:59 97 Room Air 06/23/17 22:00 69 16 159/79 (105) 97 06/23/17 20:00 36.8 77 16 144/77 (99) 96 06/23/17 20:00 96 Room Air 06/23/17 16:00 95 Room Air 06/23/17 16:00 36.9 74 18 136/71 (92) 94 Room Air 06/23/17 14:00 78 18 154/80 (104) 96 Room Air 06/23/17 12:00 97 Room Air 06/23/17 12:00 36.9 86 18 158/78 (104) 95 Room Air 06/23/17 10:00 36.9 79 18 159/77 (104) 97 Room Air Laboratory Results: Last 24 Hours Test 06/23/17 11:46 06/24/17 05:28 Bedside Glucose 199 mg/dl White Blood Count 10.30 K/uL Red Blood Count 4.68 M/uL Hemoglobin 13.1 g/dL Hematocrit 39.5 % Mean Corpuscular Volume 84.4 fL Mean Corpuscular Hemoglobin 28.0 pg Mean Corpuscular Hemoglobin Concent 33.2 g/dl Platelet Count 263 K/uL Mean Platelet Volume 9.6 fL Neutrophils (%) (Auto) 87.4 % Lymphocytes (%) (Auto) 9.1 % Monocytes (%) (Auto) 3.2 % Eosinophils (%) (Auto) 0.0 % Basophils (%) (Auto) 0.0 % Neutrophils # (Auto) 9.00 K/uL Lymphocytes # (Auto) 0.94 K/uL Monocytes # (Auto) 0.33 K/uL Eosinophils # (Auto) 0.00 K/uL Basophils # (Auto) 0.00 K/uL RDW Standard Deviation 39.6 fL RDW Coefficient of Variation 13.0 % Immature Granulocyte % (Auto) 0.3 % Immature Granulocyte # (Auto) 0.03 K/uL Sodium Level 141 mmol/L Potassium Level 3.7 mmol/L Chloride Level 108 mmol/L Carbon Dioxide Level 24 mmol/L Anion Gap 9.0 mmol/L Blood Urea Nitrogen 13 mg/dl Creatinine 0.59 mg/dl Est Creatinine Clear Calc Drug Dose 120.2 ml/min Estimated GFR () 117.9 Estimated GFR (Non- 101.7 BUN/Creatinine Ratio 22.9 Random Glucose 161 mg/dl Estimated Average Glucose 143 mg/dl Hemoglobin A1c 6.6 % Calcium Level 8.7 mg/dl Resident Involvement: Resident Care Provided Care Provided: Adult [facility] Medicine
[2017-06-24] MEDS ORDERED: POTASSIUM CHLORIDE 20 MEQ TABCR PO SCH (09:00)
[2017-06-24] MEDS ORDERED: INSULIN GLARGINE SOLOSTAR 100 UNITS/ML 3 ML PEN SC SCH (09:00)
[2017-06-24] MEDS ORDERED: LISINOPRIL/HCTZ 10/12.5MG TAB PO SCH (09:00)
[2017-06-24] MEDS ORDERED: ENOXAPARIN 30 MG/0.3 ML SYR SQ SCH (09:00)
[2017-06-24] MEDS ORDERED: ENOXAPARIN 40 MG/0.4 ML SYR SQ SCH (09:00)
--- NOTE | 2017-06-24 12:15 | PROGRESS NOTE ---
DATE: 06/24/2017 DIAGNOSIS: Supraglottitis/laryngitis. SUBJECTIVE: The patient feels much better. She is able to eat well. She feels great. There is minimal sore throat. OBJECTIVE: GENERAL: The patient is in no acute distress, alert and oriented. HEAD: Normocephalic. EYES: Normal. EARS: Tympanic membranes normal. NOSE: Nasal passages patent. THROAT: Oropharynx is normal, the hoarseness has greatly improved. NECK: Supple. IMPRESSION: Supraglottitis improved on IV Decadron and IV antibiotics. PLAN: The patient has greatly improved and should be able to be discharged relatively soon. She can be followed up in my office in 2 weeks.
[2017-06-24] MEDS ORDERED: CEPHALEXIN MONOHYDRATE 500 MG CAP PO ONE (14:43)
[2017-06-24] MEDS ORDERED: AZITHROMYCIN 250 MG TAB PO ONE (14:45)
[2017-06-24] MEDS ORDERED: KFL500 PO (16:15)
[2017-06-24] MEDS ORDERED: LCTX PO (16:15)
--- NOTE | 2017-06-24 16:22 | Discharge Instructions ---
Discharge Instructions Date of Service Jun 24, 2017. Admission Reason for Admission: Difficulty Swallowing, Lump In Throat Discharge Discharge Diagnosis / Problem: Supraglottitis.Laryngitis Discharge Goals Goal(s): Prevent Disease Progression Activity Recommendations Activity Limitations: resume your previous activity . Instructions / Follow-Up Instructions / Follow-Up Dr Montejo on 06/28/17 at 11:00AM.Please make an appointment with Dr Summers in 2 weeks Current Hospital Diet Patient's current hospital diet: Diabetes Type 2 Diet Discharge Diet Recommended Diet: Diabetes Type 2 Diet Pending Studies Studies pending at discharge: no Laboratory Results Hemoglobin A1c Test 06/24/17 05:28 Range/Units Estimated Average Glucose 143 mg/dl Hemoglobin A1c 6.6 H 4.5-5.6 % Medical Emergencies . Who to Call and When: Medical Emergencies: If at any time you feel your situation is an emergency, please call 911 immediately. . Non-Emergent Contact Non-Emergency issues call your: Primary Care Provider . Past History Medical & Surgical History: (1) Difficulty swallowing (2) Lump in throat (3) Supraglottitis . "Provider Documentation" section prepared by Lou Niño. . VTE Core Measure Inpt VTE Proph given/why not?: Enoxaparin (Lovenox)SQ, SCD's
[2017-06-24] MEDS ORDERED: CEPHALEXIN MONOHYDRATE 500 MG CAP PO SCH (21:00)
[2017-06-25] MEDS ORDERED: VANCOMYCIN TROUGH ONE (07:30)
[2017-06-25] MEDS ORDERED: AZITHROMYCIN 250 MG TAB PO ONE (09:00)
== END 2017-06-24 16:59 | disposition home or self-care (01) | DRG 153 ==
LOC: C.EDB 04:20 → C.MSICU 06:42 → ENRESERV 06:48 → C.MED 06-24 09:35
PROVIDERS: ADMIT Internal Medicine; ATTEND Internal Medicine
PROC: 0CJS8ZZ Inspection of Larynx, Via Natural or Artificial Opening Endoscopic (ICD-10-PCS; principal; 2017-06-23)
DX: J04.30 Supraglottitis, unspecified, without obstruction (principal); J05.10 Acute epiglottitis without obstruction; R06.89 Other abnormalities of breathing; R13.10 Dysphagia, unspecified; R73.9 Hyperglycemia, unspecified; T38.0X5A Adverse effect of glucocorticoids and synthetic analogues, initial encounter; R91.1 Solitary pulmonary nodule; I10 Essential (primary) hypertension; E66.9 Obesity, unspecified; Z68.35 Body mass index [BMI] 35.0-35.9, adult; Z79.899 Other long term (current) drug therapy